=== PATIENT | male | born 1960 | race Caucasian/White ===

== ENCOUNTER → 2022-02-22 | Outpatient (CLI) | payer BC | LOC: HEART 5 10:40 | DX: R09.02 Hypoxemia (principal) | CPT/HCPCS: 71046; 94060; 94729 ==

== ENCOUNTER → 2022-03-26 | Outpatient (CLI) | payer BC | LOC: KOH-I 09:11 | DX: Z87.891 Personal history of nicotine dependence (principal); R91.8 Other nonspecific abnormal finding of lung field | CPT/HCPCS: 71271 ==

== ENCOUNTER → 2022-06-07 | Outpatient (CLI) | payer BC | LOC: SLEEP 14:20 | DX: G47.33 Obstructive sleep apnea (adult) (pediatric) (principal) | CPT/HCPCS: 95811 ==